=== PATIENT | male | born 1950 | race Caucasian/White ===

== ENCOUNTER 2018-03-07 08:55 | Day surgery (SDC) | payer MEDICARE, BC ==
[~2018-03-07] VITALS: Ht 180.3 cm; Wt 90.9 kg
[2018-03-07] VITALS (8 sets, daily range): BP systolic 127–154; BP diastolic 46–102
[2018-03-07] MEDS ORDERED: ROSU20TA PO (09:10)
[2018-03-07] MEDS ORDERED: CARB200C2 PO (09:10)
[2018-03-07] MEDS ORDERED: fentaNYL/PF 50MCG/1 ML 2ML syringe ONE (09:45)
[2018-03-07] MEDS ORDERED: iohexol 300 MG/1 ML 50ml polymer ONE (09:46)
[2018-03-07] MEDS ORDERED: glucagon, human recombinant 1mg kit ONE (09:46)
[2018-03-07] MEDS ORDERED: LIDOcaine Viscous 15ml cup ONE (09:46)
[2018-03-07] MEDS ORDERED: MIDAZolam 5mg/5ml vial ONE (09:46)
[2018-03-07] MEDS ORDERED: diphenhydrAMINE 50 mg/ml inj ONE (09:46)
== END 2018-03-07 12:25 | disposition home or self-care (01) ==
LOC: GI LAB 08:55
PROVIDERS: ATTEND Internal Medicine Gastroenterology
DX: K80.50 Calculus of bile duct without cholangitis or cholecystitis without obstruction (principal); K83.8 Other specified diseases of biliary tract; E78.5 Hyperlipidemia, unspecified; Z90.49 Acquired absence of other specified parts of digestive tract; Z86.69 Personal history of other diseases of the nervous system and sense organs; Z72.89 Other problems related to lifestyle; Z85.46 Personal history of malignant neoplasm of prostate; Z85.828 Personal history of other malignant neoplasm of skin; Z92.21 Personal history of antineoplastic chemotherapy; Z86.79 Personal history of other diseases of the circulatory system; Z79.899 Other long term (current) drug therapy; Z98.890 Other specified postprocedural states
CPT/HCPCS: 43262; 43264; 74328; G0500; J1200; J1610; J2250; J3010; J7030; Q9967; 99152; 99153; A4620

== ENCOUNTER 2019-01-08 17:11 | Emergency (ER) | payer MEDICARE, BC ==
[~2019-01-08] VITALS: Ht 177.8 cm; Wt 80.0 kg
[~2019-01-08 17:11] MED LIST: CARB200C2 PO; ROSU20TA2 PO
[2019-01-08 17:43] LABS: CLARITY,URINE BLOODY (Clear); COLOR,URINE RED (Yellow); UA COLLECTION TYPE CLN CATCH MIDSTREAM
[2019-01-08 18:07] LABS: MUCUS STRANDS MODERATE /LPF (Neg); SQUAMOUS EPITHELIAL CELL,UR FEW /LPF (FEW)
[2019-01-08 18:09] LABS: BACTERIA,URINE NONE SEEN /HPF (Neg); RBC,URINE TNTC /HPF (0-2); WBC,URINE 0-4 /HPF (0-4)
[2019-01-08] MEDS ORDERED: iohexol 300mg/ml 100ml inj. ONE (19:42)
[2019-01-08 19:56] LABS: BASOPHILS % (AUTO) 0.3 % (0-1); EOSINOPHILS # (AUTO) 0.1 X10'3 (0-0.9); EOSINOPHILS % (AUTO) 1.4 % (0-6); HEMOGLOBIN 15.2 g/dl (14.0-17.9); LYMPHOCYTES # (AUTO) 3.7 X10'3 (1.1-4.8); LYMPHOCYTES % (AUTO) 39.7 % (21-51); MEAN CORPUSCULAR HEMOGLOBIN 30.6 PG (27.0-31.0); MEAN CORPUSCULAR HGB CONC 33.9 g/dL (33.0-36.5); MEAN CORPUSCULAR VOLUME 90.4 FL (78-98); MEAN PLATELET VOLUME 7.4 FL (7.4-10.4); MONOCYTES # (AUTO) 0.7 X10'3 (0-0.9); MONOCYTES % (AUTO) 7.5 % (2-12); NEUTROPHILS # (AUTO) 4.7 X10'3 (1.8-7.7); NEUTROPHILS % (AUTO) 51.1 % (42-75); PLATELET COUNT 266 X10'3 (140-440); RED BLOOD COUNT 4.98 X10'6 (4.70-6.10); RED CELL DISTRIBUTION WIDTH 13.3 % (11.5-14.5); WHITE BLOOD COUNT 9.2 X10'3 (4.5-11.0)
[2019-01-08 20:13] LABS: ALANINE AMINOTRANSFERASE 26 U/L (12-78); ALBUMIN 4.1 G/DL (3.4-5.0); ALBUMIN/GLOBULIN RATIO 1.2 (1.1-1.5); ALKALINE PHOSPHATASE 71 IU/L (46-116); ANION GAP 8 (8-16); ASPARTATE AMINO TRANSFERASE 14 U/L (10-37); BILIRUBIN,TOTAL 0.3 MG/DL (0.1-1.0); BLOOD UREA NITROGEN 16 MG/DL (7-18); BUN/CREATININE RATIO 18.4 (5.4-32.0); CALCIUM 8.6 MG/DL (8.5-10.1); CHLORIDE 108 MMOL/L (99-107); CREATININE 0.87 MG/DL (0.60-1.10); GLUCOSE 97 MG/DL (70-104); POTASSIUM 3.9 MMOL/L (3.5-5.1); SODIUM 142 MMOL/L (135-145); TOTAL CARBON DIOXIDE 26.3 MMOL/L (24-32); TOTAL PROTEIN 7.5 G/DL (6.4-8.2); eGFR 88 ML/MIN
[2019-01-08 20:56] VITALS: BP 131/82
== END 2019-01-08 21:39 | disposition home or self-care (01) ==
LOC: ER 17:12
DX: R31.9 Hematuria, unspecified (principal); Z79.899 Other long term (current) drug therapy; Z85.46 Personal history of malignant neoplasm of prostate; W18.39XA Other fall on same level, initial encounter; Y93.89 Activity, other specified; Y92.89 Other specified places as the place of occurrence of the external cause; Y99.8 Other external cause status
CPT/HCPCS: 36415; 74177; 80053; 81001; 85025; 99284; Q9967

== ENCOUNTER 2020-08-25 06:42 | Day surgery (SDC) | payer MEDICARE, BC ==
[2020-08-18 15:56] LABS: BASOPHILS % (AUTO) 0.5 % (0-1); EOSINOPHILS # (AUTO) 0.2 X10'3 (0-0.9); EOSINOPHILS % (AUTO) 2.2 % (0-6); LYMPHOCYTES # (AUTO) 3.1 X10'3 (1.1-4.8); MEAN CORPUSCULAR HEMOGLOBIN 30.2 PG (27.0-31.0); MEAN CORPUSCULAR HGB CONC 33.6 g/dL (33.0-36.5); MEAN CORPUSCULAR VOLUME 89.7 FL (78-98); MEAN PLATELET VOLUME 7.8 FL (7.4-10.4); MONOCYTES # (AUTO) 0.7 X10'3 (0-0.9); MONOCYTES % (AUTO) 8.5 % (2-12); NEUTROPHILS % (AUTO) 49.8 % (42-75); PRE OP HEMATOCRIT 43.8 % (42.0-52.0); PRE OP HEMOGLOBIN 14.7 g/dL (14.0-17.9); PRE OP PLATELET COUNT 262 X10'3 (140-440); RED BLOOD COUNT 4.89 X10'6 (4.70-6.10); RED CELL DISTRIBUTION WIDTH 13.1 % (11.5-14.5)
[2020-08-18 16:13] LABS: ALBUMIN 3.9 G/DL (3.4-5.0); ALBUMIN/GLOBULIN RATIO 1.2 (1.1-1.5); ALKALINE PHOSPHATASE 87 IU/L (46-116); BLOOD UREA NITROGEN 19 MG/DL (7-18); BUN/CREATININE RATIO 25.3 (5.4-32.0); CALCIUM 8.6 MG/DL (8.5-10.1); CHLORIDE 107 MMOL/L (99-107); CREATININE 0.75 MG/DL (0.60-1.10); PRE OP ALT 31 U/L (30-65); PRE OP ANION GAP 9 (8-16); PRE OP AST 16 U/L (10-37); PRE OP BILIRUB, TOTAL 0.3 MG/DL (0.0-1.0); PRE OP GLUCOSE 103 MG/DL (70-104); PRE OP POTASSIUM 3.9 MMOL/L (3.4-5.1); PRE OP SODIUM 143 MMOL/L (135-145); TOTAL CARBON DIOXIDE 27.1 MMOL/L (24-32); TOTAL PROTEIN 7.2 G/DL (6.4-8.2); eGFR > 90 ML/MIN
[2020-08-25] VITALS (11 sets, daily range): BP systolic 130–155; BP diastolic 80–97
[~2020-08-25] VITALS: Ht 182.9 cm; Wt 94.2 kg
[~2020-08-25 06:42] MED LIST changes: +CHOL20004 PO; +FAMO10TA41 PO; +MULT-1085 PO; +cefazolin/dext.iso 2gm/100ml IV ONE; +famotidine 20mg tablet PO ONE; +ringers solution, lacted 1,000 ML IV SCH
[2020-08-25] MEDS ORDERED: ondansetron/PF 4mg/2ml inj IV PRN (07:35)
[2020-08-25] MEDS ORDERED: meperidine/PF 25mg/ml syringe IV PRN ×3 (07:35)
[2020-08-25] MEDS ORDERED: morphine 2 MG/ML inj. syringe IV PRN (07:35)
[2020-08-25] MEDS ORDERED: proCHLORperazine 10 MG/2 ml inj IV PRN (07:35)
[2020-08-25] MEDS ORDERED: morphine 4 MG/ML inj SYRINge IV PRN (07:35)
[2020-08-25] MEDS ORDERED: ringers solution, lacted 1,000 ML IV SCH (07:35)
[2020-08-25] MEDS ORDERED: BUPIVAcaine/PF 2.5 mg/ml (0.25%) 30ml vial ONE (08:21)
[2020-08-25] MEDS ORDERED: LIDOcaine 1% 30ml preserv. free vial ONE (08:21)
[2020-08-25] MEDS ORDERED: fentaNYL/PF 50MCG/1 ML 2ML syringe ONE (08:26)
[2020-08-25] MEDS ORDERED: midazolam 1 mg/ML 2ml injection ONE (08:27)
[2020-08-25] MEDS ORDERED: propofol inj 20 ML IV ONE (09:28)
[2020-08-25] MEDS ORDERED: LIDOcaine 2% (20mg/ml) 5ml vial ONE (09:28)
[2020-08-25] MEDS ORDERED: meperidine/PF 25mg/ml syringe ONE (09:28)
[2020-08-25] MEDS ORDERED: dexamethasone sod phosphate 4mg/ml inj. ONE (09:35)
[2020-08-25] MEDS ORDERED: ondansetron/PF 4mg/2ml inj ONE (09:35)
[2020-08-25] MEDS ORDERED: neostigmine methylsulfate 1 MG/ML 10ml vial ONE (10:15)
[2020-08-25] MEDS ORDERED: ketorolac trometh. 30mg/ml inj. ONE (10:15)
[2020-08-25] MEDS ORDERED: glycopyrrolate 0.2mg/ml inj ONE (10:16)
[2020-08-25] MEDS ORDERED: HYDROcodone/acetaminophen 5mg/325mg tablet PO PRN ×2 (10:25)
--- NOTE | 2020-08-25 10:30 | NUR ---
ADMITTED TO PACU FROM OR ACCOMPANIED BY ANESTHESIA. INTIAL PHYSICAL ASSESSMENT DONE AND RECORDED. REPORT RECEIVED FROM ANESTHESIA. RESTLESS UPON EMERGENCE, HACKING COUGH. ANESTHESIA ADVISES DIFFICULT INTUBATION THEREFORE IRRITATED THROAT. HUMIDIFID OXYGEN ORDERED ALONG WITH THROAT LOZENGES
[2020-08-25] MEDS ORDERED: benzocaine/menthol oral lozeng 1 EACH BOX MM PRN (10:50)
--- NOTE | 2020-08-25 11:10 | NUR ---
DOING WELL WITH HUMIDIFIED OXYGEN, LESS COUGHING. PT STATES THROAT IRRITATION IMPROVING. ABLE TO ACQUIRE CHLORASEPTIC LOZENGES. GIVEN TO PATIENT WITH RELIEF.
--- NOTE | 2020-08-25 12:00 | NUR ---
DISCHARGE CRITERIA MET, DISCHARGE INSTRUCTIONS GIVEN, DEMONSTRATES VERBAL UNDERSTANDING. DISCHARGED HOME IN GOOD CONDITION.DENIES PAIN OR DISCOMFORT. PT IS STABLE AND ADEQUATELY RECOVERED FROM ANESTHESIA. PT HAS STABLE AIRWAY PATENCY, RESPIRATORY FUNCTION TO INCLUDE RESPIRATORY RATE AND O2 SAT. HEART RATE, BLOOD PRESSURE STABLE AND HYDRATION ADEQUATE. MENTAL STATUS IS APPROPRIATE. PAIN AND NAUSEA CONTROLLED. REFER TO PACU SPREADSHEET FOR VITAL SIGNS.
== END 2020-08-25 12:00 | disposition home or self-care (01) ==
LOC: PAS 06:42
PROVIDERS: ATTEND Surgery
DX: R22.1 Localized swelling, mass and lump, neck (principal); R22.31 Localized swelling, mass and lump, right upper limb; D17.0 Benign lipomatous neoplasm of skin and subcutaneous tissue of head, face and neck; D17.21 Benign lipomatous neoplasm of skin and subcutaneous tissue of right arm; G40.909 Epilepsy, unspecified, not intractable, without status epilepticus; K21.9 Gastro-esophageal reflux disease without esophagitis; Z85.46 Personal history of malignant neoplasm of prostate; Z90.49 Acquired absence of other specified parts of digestive tract; Z98.890 Other specified postprocedural states; Z79.899 Other long term (current) drug therapy; Z80.6 Family history of leukemia; Z83.3 Family history of diabetes mellitus; Z82.61 Family history of arthritis
CPT/HCPCS: 21552; 23071; 36415; 80053; 82948; 85025; 93005; 94640; 94760; J1100; J1885; J2001; J2175; J2250; J2405; J2704; J2710; J3010; J3490; J7120; A4215; A4618; A7000

== ENCOUNTER 2021-02-04 12:48 | Emergency (ER) | payer MEDICARE, BC ==
[~2021-02-04] VITALS: Ht 170.2 cm; Wt 95.5 kg
[~2021-02-04 12:48] MED LIST changes: -cefazolin/dext.iso 2gm/100ml IV ONE; -famotidine 20mg tablet PO ONE; -ringers solution, lacted 1,000 ML IV SCH
[2021-02-04] MEDS ORDERED: normal saline 1000ml 1,000 ML IV ONE (13:25)
[2021-02-04] MEDS ORDERED: ketorolac tromethamine 15mg/ml inj. IM ONE (13:25)
[2021-02-04 13:34] LABS: CLARITY,URINE CLEAR (Clear); COLOR,URINE STRAW (Yellow); GLUCOSE, URINE NEGATIVE (Neg); KETONES,URINE 80 mg/dl (Neg); LEUKOCYTE ESTERASE ,URINE NEGATIVE (Neg); NITRITES, URINE NEGATIVE (Neg); OCCULT BLOOD,URINE LARGE (Neg); PROTEIN,URINE NEGATIVE (Neg); UA COLLECTION TYPE CLN CATCH MIDSTREAM; UROBILINOGEN,URINE 0.2 E.U/dL (0.2-1.0)
[2021-02-04 13:38] LABS: BASOPHILS % (AUTO) 0.1 % (0-1); EOSINOPHILS % (AUTO) 0 % (0-6); HEMOGLOBIN 15.1 g/dl (14.0-17.9); LYMPHOCYTES # (AUTO) 2.9 X10'3 (1.1-4.8); LYMPHOCYTES % (AUTO) 21.5 % (21-51); MEAN CORPUSCULAR HEMOGLOBIN 30.5 PG (27.0-31.0); MEAN CORPUSCULAR HGB CONC 34.2 g/dL (33.0-36.5); MEAN PLATELET VOLUME 7.8 FL (7.4-10.4); MONOCYTES # (AUTO) 0.8 X10'3 (0-0.9); MONOCYTES % (AUTO) 5.8 % (2-12); NEUTROPHILS # (AUTO) 9.9 X10'3 (1.8-7.7); NEUTROPHILS % (AUTO) 72.6 % (42-75); PLATELET COUNT 301 X10'3 (140-440); RED BLOOD COUNT 4.94 X10'6 (4.70-6.10); RED CELL DISTRIBUTION WIDTH 13.1 % (11.5-14.5); WHITE BLOOD COUNT 13.6 X10'3 (4.5-11.0)
[2021-02-04] MEDS ORDERED: ondansetron/PF 4mg/2ml inj IV ONE ×2 (13:40→13:55)
[2021-02-04 13:46] LABS: BACTERIA,URINE NONE SEEN /HPF (Neg); MUCUS STRANDS NONE SEEN /LPF (Neg); SQUAMOUS EPITHELIAL CELL,UR FEW /LPF (FEW); WBC,URINE 0-4 /HPF (0-4)
[2021-02-04 13:53] LABS: ALANINE AMINOTRANSFERASE 30 U/L (12-78); ALBUMIN 4.1 G/DL (3.4-5.0); ALBUMIN/GLOBULIN RATIO 1.1 (1.1-1.5); ALKALINE PHOSPHATASE 91 IU/L (46-116); ANION GAP 13 (8-16); ASPARTATE AMINO TRANSFERASE 16 U/L (10-37); BILIRUBIN,TOTAL 0.5 MG/DL (0.1-1.0); BLOOD UREA NITROGEN 23 MG/DL (7-18); BUN/CREATININE RATIO 15.6 (5.4-32.0); CALCIUM 8.9 MG/DL (8.5-10.1); CHLORIDE 101 MMOL/L (99-107); CREATININE 1.47 MG/DL (0.60-1.10); GLUCOSE 130 MG/DL (70-104); LIPASE 62 U/L (73-393); POTASSIUM 4.4 MMOL/L (3.5-5.1); SODIUM 138 MMOL/L (135-145); TOTAL CARBON DIOXIDE 23.6 MMOL/L (24-32); eGFR 48 ML/MIN
[2021-02-04] MEDS ORDERED: morphine 4 MG/ML inj SYRINge IV ONE (13:55)
[2021-02-04] MEDS ORDERED: FLO0.4C PO (15:33)
[2021-02-04] MEDS ORDERED: SULF1TAB45 PO (15:33)
[2021-02-04] MEDS ORDERED: ONDA4TAB6 PO (15:33)
[2021-02-04] MEDS ORDERED: HYDR-3965 PO (15:33)
[2021-02-04] MEDS ORDERED: morphine 4 MG/ML inj SYRINge IM ONE (16:15)
[2021-02-04 17:10] VITALS: BP 150/85
== END 2021-02-04 17:12 | disposition home or self-care (01) ==
LOC: ER 12:49
DX: N20.1 Calculus of ureter (principal); R10.31 Right lower quadrant pain; R11.2 Nausea with vomiting, unspecified; R31.9 Hematuria, unspecified; Z85.9 Personal history of malignant neoplasm, unspecified; Z79.899 Other long term (current) drug therapy; Z79.2 Long term (current) use of antibiotics
CPT/HCPCS: 36415; 70450; 80053; 81001; 83690; 85025; 96361; 96372; 96374; 99284; J1885; J2270; J2405; J7030; 74176

== ENCOUNTER 2021-03-02 22:45 | Inpatient (IN) | payer MEDICARE, BC ==
[~2021-03-02] VITALS: Ht 182.9 cm; Wt 99.9 kg
[~2021-03-02 22:45] MED LIST changes: +ONDA4TAB6 PO
[2021-03-02 23:19] LABS: HEMOGLOBIN 14.4 g/dl (14.0-17.9); MEAN PLATELET VOLUME 7.4 FL (7.4-10.4)
[2021-03-02 23:20] LABS: BASOPHILS % (AUTO) 0.2 % (0-1); EOSINOPHILS # (AUTO) 0.1 X10'3 (0-0.9); EOSINOPHILS % (AUTO) 0.4 % (0-6); HEMATOCRIT 42.2 % (42.0-52.0); LYMPHOCYTES # (AUTO) 3.9 X10'3 (1.1-4.8); LYMPHOCYTES % (AUTO) 30.4 % (21-51); MEAN CORPUSCULAR HEMOGLOBIN 30.4 PG (27.0-31.0); MEAN CORPUSCULAR HGB CONC 34.1 g/dL (33.0-36.5); MEAN CORPUSCULAR VOLUME 89.3 FL (78-98); MONOCYTES % (AUTO) 8.1 % (2-12); NEUTROPHILS # (AUTO) 7.8 X10'3 (1.8-7.7); NEUTROPHILS % (AUTO) 60.9 % (42-75); PLATELET COUNT 254 X10'3 (140-440); RED BLOOD COUNT 4.72 X10'6 (4.70-6.10); RED CELL DISTRIBUTION WIDTH 12.7 % (11.5-14.5); WHITE BLOOD COUNT 12.8 X10'3 (4.5-11.0)
[2021-03-02 23:23] LABS: CLARITY,URINE CLEAR (Clear); COLOR,URINE YELLOW (Yellow); GLUCOSE, URINE NEGATIVE (Neg); KETONES,URINE NEGATIVE (Neg); LEUKOCYTE ESTERASE ,URINE NEGATIVE (Neg); NITRITES, URINE NEGATIVE (Neg); OCCULT BLOOD,URINE SMALL (Neg); PH,URINE 5.5 (4.8-8.0); PROTEIN,URINE NEGATIVE (Neg); UROBILINOGEN,URINE 0.2 E.U/dL (0.2-1.0)
[2021-03-02 23:27] LABS: UA COLLECTION TYPE CLN CATCH MIDSTREAM
[2021-03-02 23:31] LABS: MUCUS STRANDS FEW /LPF (Neg); SQUAMOUS EPITHELIAL CELL,UR FEW /LPF (FEW)
[2021-03-02 23:33] LABS: BACTERIA,URINE NONE SEEN /HPF (Neg); WBC,URINE 0-4 /HPF (0-4)
[2021-03-02 23:50] LABS: ALANINE AMINOTRANSFERASE 32 U/L (12-78); ALBUMIN 3.9 G/DL (3.4-5.0); ALBUMIN/GLOBULIN RATIO 1.1 (1.1-1.5); ALKALINE PHOSPHATASE 85 IU/L (46-116); ANION GAP 12 (8-16); ASPARTATE AMINO TRANSFERASE 18 U/L (10-37); BILIRUBIN,TOTAL 0.3 MG/DL (0.1-1.0); BLOOD UREA NITROGEN 25 MG/DL (7-18); BUN/CREATININE RATIO 12.3 (5.4-32.0); CALCIUM 8.7 MG/DL (8.5-10.1); CHLORIDE 102 MMOL/L (99-107); CREATININE 2.03 MG/DL (0.60-1.10); GLUCOSE 133 MG/DL (70-104); POTASSIUM 3.9 MMOL/L (3.5-5.1); SODIUM 137 MMOL/L (135-145); TOTAL CARBON DIOXIDE 23.1 MMOL/L (24-32); TOTAL PROTEIN 7.3 G/DL (6.4-8.2); eGFR 33 ML/MIN
[2021-03-02] MEDS ORDERED: HYDROmorphone inj. 0.5 MG/0.5 ML DISP.SYRIN IV ONE (23:55)
[2021-03-02] MEDS ORDERED: metoclopramide 5 mg/ml inj IV ONE (23:55)
[2021-03-03] VITALS (7 sets, daily range): BP systolic 107–166; BP diastolic 59–87
[2021-03-03] MEDS ORDERED: bisacodyl 10mg suppository rectal RC PRN (03:05)
[2021-03-03] MEDS ORDERED: morphine 2 MG/ML inj. syringe IV PRN (03:05)
[2021-03-03] MEDS ORDERED: ondansetron/PF 4mg/2ml inj IV PRN (03:05)
[2021-03-03] MEDS ORDERED: HYDROmorphone inj. 0.5 MG/0.5 ML DISP.SYRIN IV PRN (03:05)
[2021-03-03] MEDS ORDERED: diphenhydrAMINE 25mg capsule PO PRN (03:05)
[2021-03-03] MEDS ORDERED: mag hydrox/Alum hydrox/simeth 30ml oral suspension PO PRN (03:05)
[2021-03-03] MEDS ORDERED: diphenhydrAMINE 50 mg/ml inj IV PRN (03:05)
[2021-03-03] MEDS ORDERED: ondansetron 4mg rapidly disintigrating tab PO PRN (03:05)
[2021-03-03] MEDS ORDERED: HYDROcodone/acetaminophen 5mg/325mg tablet PO PRN (03:05)
[2021-03-03] MEDS ORDERED: acetaminophen 325mg tablet PO PRN (03:05)
[2021-03-03] MEDS ORDERED: acetaminophen 650mg rectal suppository RC PRN (03:05)
[2021-03-03] MEDS ORDERED: HYDROcodone/acetaminophen 10/325mg tab PO PRN (03:05)
[2021-03-03] MEDS ORDERED: magnesium hydroxide 30ml (MOM) UD suspension PO PRN (03:05)
[2021-03-03] MEDS ORDERED: HYDROmorphone/PF 0.2 MG/ML SYRINGE IV PRN (03:05)
[2021-03-03] MEDS: morphine 2 MG/ML inj. syringe IV PRN ×2 (03:47→10:40)
[2021-03-03] MEDS: normal saline 1000ml 1,000 ML IV SCH ×3 (03:47→23:05)
[2021-03-03 04:02] LABS: PARTIAL THROMBOPLASTIN TIME 30 SECONDS (22-32)
[2021-03-03 04:15] LABS: CARBAMAZEPINE (TEGRETOL) 10.3 UG/ML (4.0-12.0); MAGNESIUM 2.1 MG/DL (1.5-2.4); PHOSPHORUS 4.2 MG/DL (2.3-4.5)
--- NOTE | 2021-03-03 04:50 | NUR ---
pr arrived PCU room 15B from ED on [facility]; able to walk from [facility] to his bed. Pt in no acute distress; on room air with no shortness of breath of difficulty breathing noted
--- NOTE | 2021-03-03 06:20 | NUR ---
received report from luis manuel salter
--- NOTE | 2021-03-03 06:49 | NUR ---
Pt A&Ox4, able to answer all questions and carry on conversation nicely. Pt NSR on tele, VSS and afebrile, denies chest pain/pressure. Pt NPO per orders, abdomen is soft and nontender, 0.9NS infusing at 100ml/hr. Pt able to walk with steady gait to and from bathroom. No bowel movement from time of arrival. Pt admits intermittent sharp pain on right flank side. Pt educated on unit safety practices. Bed in lowest position with wheels locked and side rails up x3, call light and personal effects within reach, ID band on, room well lit and clutter free, nonskid socks on.
[2021-03-03] MEDS: CefTRIAXone/D5W-Rocephin 1gm 50 ML IV SCH (07:50)
[2021-03-03] MEDS: docusate sod 100mg capsule PO SCH ×2 (07:53→20:06)
[2021-03-03 08:53] LABS: BASOPHILS % (AUTO) 0.2 % (0-1); EOSINOPHILS % (AUTO) 0.5 % (0-6); HEMATOCRIT 39.8 % (42.0-52.0); HEMOGLOBIN 13.9 g/dl (14.0-17.9); LYMPHOCYTES # (AUTO) 2.9 X10'3 (1.1-4.8); LYMPHOCYTES % (AUTO) 30.8 % (21-51); MEAN CORPUSCULAR HEMOGLOBIN 30.7 PG (27.0-31.0); MEAN CORPUSCULAR HGB CONC 34.8 g/dL (33.0-36.5); MEAN CORPUSCULAR VOLUME 88.1 FL (78-98); MEAN PLATELET VOLUME 7.2 FL (7.4-10.4); MONOCYTES # (AUTO) 0.8 X10'3 (0-0.9); MONOCYTES % (AUTO) 8.9 % (2-12); NEUTROPHILS # (AUTO) 5.6 X10'3 (1.8-7.7); NEUTROPHILS % (AUTO) 59.6 % (42-75); PLATELET COUNT 226 X10'3 (140-440); RED BLOOD COUNT 4.52 X10'6 (4.70-6.10); RED CELL DISTRIBUTION WIDTH 12.9 % (11.5-14.5); WHITE BLOOD COUNT 9.5 X10'3 (4.5-11.0)
[2021-03-03 09:15] LABS: ALANINE AMINOTRANSFERASE 26 U/L (12-78); ALBUMIN 3.5 G/DL (3.4-5.0); ALBUMIN/GLOBULIN RATIO 1.1 (1.1-1.5); ALKALINE PHOSPHATASE 77 IU/L (46-116); ANION GAP 8 (8-16); ASPARTATE AMINO TRANSFERASE 13 U/L (10-37); BILIRUBIN,TOTAL 0.4 MG/DL (0.1-1.0); BLOOD UREA NITROGEN 20 MG/DL (7-18); BUN/CREATININE RATIO 16.3 (5.4-32.0); CALCIUM 8.1 MG/DL (8.5-10.1); CHLORIDE 106 MMOL/L (99-107); CREATININE 1.23 MG/DL (0.60-1.10); GLUCOSE 125 MG/DL (70-104); POTASSIUM 3.9 MMOL/L (3.5-5.1); SODIUM 140 MMOL/L (135-145); TOTAL CARBON DIOXIDE 25.8 MMOL/L (24-32); TOTAL PROTEIN 6.6 G/DL (6.4-8.2); eGFR 59 ML/MIN
[2021-03-03] MEDS ORDERED: ATOR20TA66 PO (12:46)
[2021-03-03] MEDS: carBAMazepine Ext. Release 200 MG TAB.ER.12H PO SCH ×2 (12:57→20:07)
[2021-03-03] MEDS: acetaminophen 325mg tablet PO PRN ×2 (17:21→20:09)
--- NOTE | 2021-03-03 18:13 | NUR ---
GAVE REPORT TO DANILO SMITH
[2021-03-03] MEDS ORDERED: CARBAMAZEPINE PO SCH (20:00)
[2021-03-03] MEDS ORDERED: tamsulosin 0.4mg capsule PO SCH (21:00)
[2021-03-03] MEDS ORDERED: temazepam 15mg capsule PO PRN (21:00)
[2021-03-04] VITALS (16 sets, daily range): BP systolic 122–151; BP diastolic 78–98
--- NOTE | 2021-03-04 06:35 | NUR ---
Patient in room PCU 3015B. I have received report from DANILO SMITH and had the opportunity to ask questions and assume patient care.
[2021-03-04 07:32] LABS: BASOPHILS % (AUTO) 0.4 % (0-1); EOSINOPHILS # (AUTO) 0.1 X10'3 (0-0.9); EOSINOPHILS % (AUTO) 0.8 % (0-6); HEMATOCRIT 39.3 % (42.0-52.0); HEMOGLOBIN 13.4 g/dl (14.0-17.9); LYMPHOCYTES # (AUTO) 2.9 X10'3 (1.1-4.8); LYMPHOCYTES % (AUTO) 39.3 % (21-51); MEAN CORPUSCULAR HEMOGLOBIN 30.5 PG (27.0-31.0); MEAN CORPUSCULAR HGB CONC 34.1 g/dL (33.0-36.5); MEAN CORPUSCULAR VOLUME 89.5 FL (78-98); MEAN PLATELET VOLUME 7.5 FL (7.4-10.4); MONOCYTES # (AUTO) 0.6 X10'3 (0-0.9); MONOCYTES % (AUTO) 8.2 % (2-12); NEUTROPHILS # (AUTO) 3.8 X10'3 (1.8-7.7); NEUTROPHILS % (AUTO) 51.3 % (42-75); PLATELET COUNT 230 X10'3 (140-440); RED BLOOD COUNT 4.39 X10'6 (4.70-6.10); RED CELL DISTRIBUTION WIDTH 13.3 % (11.5-14.5); WHITE BLOOD COUNT 7.3 X10'3 (4.5-11.0)
[2021-03-04 07:46] LABS: ALANINE AMINOTRANSFERASE 25 U/L (12-78); ALBUMIN 3.3 G/DL (3.4-5.0); ALKALINE PHOSPHATASE 75 IU/L (46-116); ANION GAP 7 (8-16); ASPARTATE AMINO TRANSFERASE 13 U/L (10-37); BILIRUBIN,TOTAL 0.3 MG/DL (0.1-1.0); BLOOD UREA NITROGEN 16 MG/DL (7-18); BUN/CREATININE RATIO 17.8 (5.4-32.0); CALCIUM 8.2 MG/DL (8.5-10.1); CHLORIDE 111 MMOL/L (99-107); GLUCOSE 115 MG/DL (70-104); SODIUM 143 MMOL/L (135-145); TOTAL CARBON DIOXIDE 24.8 MMOL/L (24-32); TOTAL PROTEIN 6.5 G/DL (6.4-8.2); eGFR 84 ML/MIN
[2021-03-04] MEDS: docusate sod 100mg capsule PO SCH (08:00)
[2021-03-04] MEDS ORDERED: famotidine 20mg tablet PO PRN (08:00)
[2021-03-04] MEDS ORDERED: multivitamins, therapeutics tablet PO SCH (08:00)
[2021-03-04] MEDS ORDERED: atorvastatin 20mg tablet PO SCH (08:00)
[2021-03-04] MEDS ORDERED: cholecalciferol (vitamin D3) 1,000 unit (25mcg) tablet PO SCH (08:00)
[2021-03-04] MEDS: CefTRIAXone/D5W-Rocephin 1gm 50 ML IV SCH (08:14)
[2021-03-04] MEDS: carBAMazepine Ext. Release 200 MG TAB.ER.12H PO SCH (08:14)
[2021-03-04] MEDS: normal saline 1000ml 1,000 ML IV SCH (09:05)
[2021-03-04] MEDS ORDERED: hydrALAZINE 20mg/ml inj. IV PRN (10:20)
[2021-03-04] MEDS ORDERED: ringers solution, lacted 1,000 ML IV SCH (10:20)
[2021-03-04] MEDS ORDERED: labetalol 20mg/4ml (5mg/ml) syringe IV PRN (10:20)
[2021-03-04] MEDS ORDERED: ondansetron/PF 4mg/2ml inj IV PRN (10:20)
[2021-03-04] MEDS ORDERED: morphine 4 MG/ML inj SYRINge IV PRN (10:20)
[2021-03-04] MEDS ORDERED: fentaNYL/PF 50MCG/1 ML 2ML syringe IV PRN ×2 (10:20)
[2021-03-04] MEDS ORDERED: morphine 2 MG/ML inj. syringe IV PRN (10:20)
[2021-03-04] MEDS ORDERED: sevoflurane 250ml liquid IH ONE (11:38)
[2021-03-04] MEDS ORDERED: dexamethasone sod phosphate 10mg/ml inj ONE (11:38)
[2021-03-04] MEDS ORDERED: fentaNYL/PF 50MCG/1 ML 2ML syringe ONE (11:41)
[2021-03-04] MEDS ORDERED: midazolam 1 mg/ML 2ml injection ONE (11:41)
[2021-03-04] MEDS ORDERED: LIDOcaine 2% (20mg/ml) 5ml vial ONE (11:42)
[2021-03-04] MEDS ORDERED: propofol inj 20 ML IV ONE (11:42)
[2021-03-04] MEDS ORDERED: ondansetron/PF 4mg/2ml inj ONE (11:42)
--- NOTE | 2021-03-04 12:30 | NUR ---
Received patient from OR, report received from md. Patient waking up, denies pain, v/s wnl, neurovascular checks intact, scd on, 20 g piv to lue , cystoscopy
--- NOTE | 2021-03-04 13:10 | NUR ---
Patient alert and oriented, denies pain, v/s wnl, neurovascular checks intact, scd on, 20 g piv to lue , cystoscopy. BED LOW, CALL LIGHT PRESENT AND 2 RAILS UP. RN PRESENT TO ACCEPT CARE OF PATIENT HAS MET ALL CRITERIA FOR TRANSFER TO THE SURGICAL/AMBER/PCU/ORTHO/ICU FLOOR. VSS. PATIENT AND REPORT HAS BEEN CALLED. ALL QUESTIONS ANSWERED TO ACCEPTING RN.
[2021-03-04] MEDS ORDERED: tamsulosin capsule PO (16:16)
[2021-03-04] MEDS ORDERED: ACET-1008 PO (16:18)
[2021-03-04] MEDS ORDERED: LISI5TAB22 PO (16:24)
[2021-03-04] MEDS ORDERED: CIPR-259 PO (17:10)
--- NOTE | 2021-03-04 17:41 | NUR ---
PATIENT STABLE AND APPROPRIATE FOR DISCHARGE, IV TAKEN OUT, TELE REMOVED, EDUCATION GIVEN, NEW MEDS CALLED IN TO PREFERRED PHARMACY, EDUCATION GIVEN, ALL BELONGINGS SENT WITH PATIENT, PATIENT TAKEN TO LOBBY BY WHEELCHAIR TO AN AWAITING CAR WHERE WILL TAKE PATIENT HOME
[2021-03-04] MEDS ORDERED: lactobacillus rhamnosus 10,000 MMU CELLS/CAPSULE PO SCH (20:00)
== END 2021-03-04 17:55 | disposition home or self-care (01) | DRG 661 ==
LOC: ER 22:46 → ED HOLD 03-03 03:09 → PCU 3S 03-03 04:48
PROVIDERS: ADMIT Family Medicine; ATTEND Family Medicine
PROC: 0T768DZ Dilation of Right Ureter with Intraluminal Device, Via Natural or Artificial Opening Endoscopic (ICD-10-PCS; 2021-03-04)
PROC: 0TC68ZZ Extirpation of Matter from Right Ureter, Via Natural or Artificial Opening Endoscopic (ICD-10-PCS; principal; 2021-03-04 11:38)
DX: N13.6 Pyonephrosis (principal); E66.9 Obesity, unspecified; N17.0 Acute kidney failure with tubular necrosis; K21.9 Gastro-esophageal reflux disease without esophagitis; E78.00 Pure hypercholesterolemia, unspecified; Z20.822 Contact with and (suspected) exposure to COVID-19; E78.5 Hyperlipidemia, unspecified; G40.909 Epilepsy, unspecified, not intractable, without status epilepticus; I12.9 Hypertensive chronic kidney disease with stage 1 through stage 4 chronic kidney disease, or unspecified chronic kidney disease; N18.9 Chronic kidney disease, unspecified; Z90.49 Acquired absence of other specified parts of digestive tract; Z79.899 Other long term (current) drug therapy; Z68.29 Body mass index [BMI] 29.0-29.9, adult
CPT/HCPCS: 36415; 74176; 76000; 80053; 80156; 81001; 82948; 83735; 83880; 84100; 85025; 85610; 85730; 87081; 87635; 88300; 99285; A4618; C1758; C1769; C2617; G0378; J0696; J1100; J1170; J2250; J2270; J2405; J2704; J2765; J3010; J3490; J7030